=== PATIENT | male | born 1965 | race Caucasian/White ===

== ENCOUNTER 2020-12-13 16:14 | Inpatient (IN) | payer BC ==
[~2020-12-13] VITALS: Ht 177.8 cm; Wt 85.7 kg
[2020-12-13 16:20] VITALS: BP 193/122
[2020-12-13] MEDS ORDERED: PROAIR HFA8.5 GM INH (16:28)
[2020-12-13] MEDS ORDERED: HYDROCHLOROTHIA25 M1 PO (16:28)
[2020-12-13] MEDS ORDERED: COZAAR 25 MG TA25 M1 PO (16:28)
[2020-12-13 16:55] LABS: ABSOLUTE BASOPHILS 0.1 thou/uL (0.0-0.2); ABSOLUTE EOSINOPHILS 0.2 thou/uL (0.0-0.7); ABSOLUTE LYMPHOCYTES 1.7 thou/uL (0.8-5.3); ABSOLUTE MONOCYTES 1.1 thou/uL (0.0-1.2); ABSOLUTE NEUTROPHILS 7.4 thou/uL (1.6-8.1); BASOPHILS 0.7 %; EOSINOPHILS 2.1 %; HEMATOCRIT 42.6 % (42.0-52.0); HEMOGLOBIN 14.5 gm/dL (14.0-18.0); LYMPHOCYTES 16.3 %; MCV 94.2 fL (80.0-100.0); MONOCYTES 10.8 %; MPV 7.1 fl. (7.2-11.1); NUCLEATED RBCS 0 /100WBC; PLATELET COUNT* 250 thou/uL (150-400); POLYS 70.1 %; RBC 4.53 mil/uL (4.50-6.00); RDW-CV 13.1 % (10.5-14.5); WBC 10.5 thou/uL (4.0-11.0)
[2020-12-13 17:03] LABS: CALCIUM 9.1 mg/dL (8.5-10.1); CREATININE 1.5 mg/dL (0.6-1.3); POTASSIUM 4.1 mmol/L (3.5-5.1)
[2020-12-13 17:07] LABS: ALBUMIN 3.6 g/dL (3.4-5.0); TOTAL BILIRUBIN 0.5 mg/dL (<0.1-1.0); TOTAL PROTEIN 7.9 g/dL (6.4-8.2)
--- NOTE | 2020-12-13 17:30 | EKG ---
[place] [address] ELECTROCARDIOGRAM REPORT Name: ANEL SPIVEY Room: [facility]#: [id number] Admission: Attend Phys: Discharge: Date of : 69 Date of Service: 12/13/20 163 Report #: [id number] THIS REPORT FOR: //name// [facility] ED Test Date: 2020-12-13 Test Time: 16:36:18 Pat Name: ANEL SPIVEY Department: Room: Gender: Senior Storage Administrator: [facility] : 1965 Requested By: Collin Ca Order Number: [id number] MD: Kahlil Trevino Measurements Intervals [place] Rate: 64 P: 32 [place]: 151 QRS: 3 QRSD: 84 T: 5 QT: 375 QTc: 387 Interpretive Statements Sinus rhythm No previous ECG available for comparison Electronically Signed On 12-13-2020 17:30:32 CDT by Kahlil Trevino [email or web address] <ELECTRONICALLY SIGNED> By: Kahlil Trevino MD, [facility] 12/13/20 1730 1636 [id number] Kahlil Trevino MD, FAC /EPI
[2020-12-13 23:00] VITALS: BP 158/87
[2020-12-14 00:07] VITALS: BP 158/87
[2020-12-14 00:20] VITALS: BP 150/86
[2020-12-14 08:00] VITALS: BP 175/99
[2020-12-14 14:22] LABS: ABSOLUTE EOSINOPHILS 0.3 thou/uL (0.0-0.7); ABSOLUTE LYMPHOCYTES 1.4 thou/uL (0.8-5.3); ABSOLUTE MONOCYTES 0.9 thou/uL (0.0-1.2); ABSOLUTE NEUTROPHILS 6.2 thou/uL (1.6-8.1); BASOPHILS 0.5 %; EOSINOPHILS 3.8 %; HEMATOCRIT 43.8 % (42.0-52.0); HEMOGLOBIN 14.6 gm/dL (14.0-18.0); LYMPHOCYTES 15.4 %; MCH 31.8 pg (26.0-34.0); MCHC 33.4 g/dL (28.0-37.0); MCV 95.3 fL (80.0-100.0); MONOCYTES 9.8 %; MPV 7.3 fl. (7.2-11.1); NUCLEATED RBCS 0 /100WBC; PLATELET COUNT* 203 thou/uL (150-400); POLYS 70.5 %; RBC 4.59 mil/uL (4.50-6.00); RDW-CV 13.2 % (10.5-14.5); WBC 8.8 thou/uL (4.0-11.0)
[2020-12-14 14:35] LABS: ALBUMIN 3.3 g/dL (3.4-5.0); CALCIUM 8.8 mg/dL (8.5-10.1); CREATININE 1.5 mg/dL (0.6-1.3); POTASSIUM 3.7 mmol/L (3.5-5.1); TOTAL BILIRUBIN 0.5 mg/dL (<0.1-1.0); TOTAL PROTEIN 7.8 g/dL (6.4-8.2)
[2020-12-14 16:36] VITALS: BP 154/82
[2020-12-14 20:30] VITALS: BP 165/93
[2020-12-15 03:16] LABS: CALCIUM 8.5 mg/dL (8.5-10.1); CREATININE 1.4 mg/dL (0.6-1.3); POTASSIUM 4.2 mmol/L (3.5-5.1)
[2020-12-15 03:19] LABS: ABSOLUTE EOSINOPHILS 0.5 thou/uL (0.0-0.7); ABSOLUTE LYMPHOCYTES 2.4 thou/uL (0.8-5.3); ABSOLUTE NEUTROPHILS 4.2 thou/uL (1.6-8.1); BASOPHILS 0.4 %; EOSINOPHILS 5.9 %; LYMPHOCYTES 29.3 %; MCH 31.6 pg (26.0-34.0); MCHC 33.6 g/dL (28.0-37.0); MONOCYTES 12.8 %; MPV 7.5 fl. (7.2-11.1); NUCLEATED RBCS 0 /100WBC; PLATELET COUNT* 208 thou/uL (150-400); POLYS 51.6 %; RBC 3.93 mil/uL (4.50-6.00); RDW-CV 12.9 % (10.5-14.5); WBC 8.1 thou/uL (4.0-11.0)
[2020-12-15 03:48] LABS: HEMOGLOBIN 12.4 gm/dL (14.0-18.0)
[2020-12-15 08:00] VITALS: BP 155/78
[2020-12-15] MEDS ORDERED: FLOMAX0.4 MG PO (11:52)
[2020-12-15] MEDS ORDERED: NORCO5 PO (11:52)
[2020-12-15 12:10] VITALS: BP 155/78
[2020-12-15 12:20] LABS: URINE BILIRUBIN NEGATIVE (Negative); URINE BLOOD TRACE (Negative); URINE CLARITY CLEAR; URINE COLOR YELLOW; URINE GLUCOSE-RANDOM NEGATIVE (Negative); URINE KETONES NEGATIVE (Negative); URINE LEUKOCYTES-REFLEX NEGATIVE (Negative); URINE NITRITE-REFLEX NEGATIVE (Negative); URINE PROTEIN NEGATIVE (Negative); URINE SPECIFIC GRAVITY 1.015 (1.005-1.030); URINE UROBILINOGEN 0.2 E.U./dl (0.2-1.0)
[2020-12-15] MEDS ORDERED: ZOFRAN ODT4 MG PO (12:24)
== END 2020-12-15 12:50 | disposition home or self-care (01) | DRG 694 ==
LOC: M.ERS 16:14 → M.TBA-ER 18:53 → M.3W 12-14 00:24
PROVIDERS: Internal Medicine; Nurse Practitioner Psychiatric/Mental Health; ADMIT Internal Medicine; ATTEND Internal Medicine
DX: N13.2 Hydronephrosis with renal and ureteral calculous obstruction (principal); J45.909 Unspecified asthma, uncomplicated; N17.9 Acute kidney failure, unspecified; I16.0 Hypertensive urgency; N18.9 Chronic kidney disease, unspecified; Z20.822 Contact with and (suspected) exposure to COVID-19